=== PATIENT | male | born 1950 | race Caucasian/White ===

== ENCOUNTER → 2017-12-21 | Outpatient (CLI) | payer MEDICARE, BC | END | disposition home or self-care (01) | LOC: LABWHC1 08:57 | PROVIDERS: ATTEND Urology | DX: R97.20 Elevated prostate specific antigen [PSA] (principal) | CPT/HCPCS: 36415; 84153 ==

== ENCOUNTER → 2018-12-02 | Outpatient (CLI) | payer MEDICARE, BC ==
--- NOTE | 2018-12-02 11:28 | US ---
EXAMINATION TYPE: US carotid duplex BILAT DATE OF EXAM: 12/02/2018 COMPARISON: NONE CLINICAL HISTORY: R09.89 Bilateral carotid bruit. Bruit, dizziness EXAM MEASUREMENTS: RIGHT: Peak Systolic Velocity (PSV) cm/sec ----- Right CCA: 64.2 ----- Right ICA: 90.6 ----- Right ECA: 119.1 ICA/CCA ratio: 1.4 RIGHT: End Diastole cm/sec ----- Right CCA: 15.4 ----- Right ICA: 26.4 ----- Right ECA: 19.1 LEFT: Peak Systolic Velocity (PSV) cm/sec ----- Left CCA: 79.4 ----- Left ICA: 107.0 ----- Left ECA: 88.7 ICA/CCA ratio: 1.3 LEFT: End Diastole cm/sec ----- Left CCA: 20.7 ----- Left ICA: 34.9 ----- Left ECA: 16.6 VERTEBRALS (direction of flow): Right Vertebral: Antegrade Left Vertebral: Antegrade Rhythm: Normal Bilateral intimal thickening, no elevated velocities, no significant stenosis. IMPRESSION: 1. Bilateral intimal thickening with no significant hemodynamic stenosis as visualized. Criteria for Assigning % of Stenosis / Diameter reduction (Estimation based on the indirect measurements of the internal carotid artery velocities (ICA PSV). 1. Normal (no stenosis)=ICA PSV < 125 cm/s: ratio < 2.0: ICA EDV<40 cm/s. 2. Less than 50% stenosis=ICA PSV < 125 cm/s: ratio < 2.0: ICA EDV<40 cm/s. 3. 50 to 69% stenosis=ICA PSV of 125 to 230 cm/s: ration 2.0 ? 4.0: ICA EDV 40-100 cm/s. 4. Greater than 70% stenosis to near occlusion= ICA PSV > 230 cm/s: ratio > 4.0: ICA EDV > 100 cm/s. 5. Near occlusion= ICA PSV velocities may be low or undetectable: variable ratio and ICA EDV. 6. Total occlusion=unable to detect flow.
== END | disposition home or self-care (01) ==
LOC: RADUSWWP 10:11
PROVIDERS: ATTEND Family Medicine
DX: R00.2 Palpitations (principal); R09.89 Other specified symptoms and signs involving the circulatory and respiratory systems
CPT/HCPCS: 93225; 93226; 93880

== ENCOUNTER → 2019-02-08 | Outpatient (CLI) | payer MEDICARE, BC ==
[2019-02-08 08:56] LABS: HCT 45.1 % (39.0-53.0); HGB 14.5 gm/dL (13.0-17.5); MCH 29.6 pg (25.0-35.0); MCHC 32.1 g/dL (31.0-37.0); MCV 92.3 fL (80.0-100.0); Mean Platelet Volume 8.2; Platelet Count 179 k/uL (150-450); RBC 4.89 m/uL (4.30-5.90); RDW 14.3 % (11.5-15.5); WBC 5.5 k/uL (3.8-10.6)
[2019-02-08 08:57] LABS: INR 0.9 (<1.2); Partial Thromboplastin Time 23.2 sec (22.0-30.0); Prothrombin Time 9.9 sec (9.0-12.0)
[2019-02-08 16:58] LABS: Anion Gap 4.5 mmol/L (4.00-12.00); Calcium 9.1 mg/dL (8.7-10.3); Carbon Dioxide 29.5 mmol/L (21.6-31.8); LDL Cholesterol,Calculated 97.4 mg/dL (0.0-131.0); Potassium 4.3 mmol/L (3.5-5.5); VLDL Calculation 13.6 mg/dL (5.00-40.00)
== END | disposition home or self-care (01) ==
LOC: LABWHC1 08:15
PROVIDERS: ATTEND Internal Medicine Interventional Cardiology
DX: I48.91 Unspecified atrial fibrillation (principal)
CPT/HCPCS: 36415; 80048; 80061; 84450; 84460; 85027; 85610; 85730

== ENCOUNTER → 2022-03-19 | Outpatient (CLI) | payer MEDICARE, BC ==
[2022-03-19 15:16] LABS: African American GFR (CKD) 97.1 (60.0-200.0); BUN/Creat Ratio 22.19 Ratio (12.00-20.00); Blood Urea Nitrogen 20.1 mg/dL (9.0-27.0); Calcium 9.2 mg/dL (8.7-10.3); Carbon Dioxide 26.7 mmol/L (20.0-27.5); Non-African American GFR(CKD) 83.8 (60.0-200.0); Potassium 4.4 mmol/L (3.5-5.5)
[2022-03-19 16:14] LABS: Basophils # (A) 0.05 X 10*3/uL (0.00-0.10); Eosinophils # (A) 0.25 X 10*3/uL (0.04-0.35); Eosinophils % (A) 5.1 %; HCT 42.3 % (39.6-50.0); HGB 13.5 g/dL (13.0-17.0); Immature Grans, Automated 0.2 %; Lymphocytes # (A) 1.39 X 10*3/uL (0.90-5.00); Lymphocytes % (A) 28.1 %; MCH 30.1 pg (27.0-32.0); MCHC 31.9 g/dL (32.0-37.0); MCV 94.4 fL (80.0-97.0); Mean Platelet Volume 11.7 fL (9.5-12.2); Monocytes % (A) 12.1 %; NRBC Per 100 WBC 0 /100 WBCS (0.0-0.0); Neutrophils # (A) 2.64 X 10*3/uL (1.80-7.70); Neutrophils % (A) 53.5 %; Platelet Count 155 X 10*3/uL (140-440); RBC 4.48 X 10*6/uL (4.40-5.60); RDW 13.5 % (11.5-14.5); WBC 4.94 X 10*3/uL (4.50-10.00)
== END | disposition home or self-care (01) ==
LOC: LABPAT 10:35
PROVIDERS: ATTEND Urology
DX: Z01.812 Encounter for preprocedural laboratory examination (principal); N40.1 Benign prostatic hyperplasia with lower urinary tract symptoms
CPT/HCPCS: 80048; 85025

== ENCOUNTER 2022-03-27 06:10 | Day surgery (SDC) | payer BC, MEDICARE ==
[2022-03-25 08:43] VITALS: BMI 24.9
--- NOTE | 2022-03-26 18:49 | P.GSHP ---
History of Present Illness H&P Date: 03/26/22 Chief Complaint: Diminished urinary stream The patient is a 72-year-old white male with obstructive voiding symptoms. He reports a weak urinary stream, intermittency, postvoid dribbling, and nocturia. A trial of tamsulosin was unsuccessful. Cystoscopy revealed bilobar BPH, with a prostatic urethra measuring 2-3 cm in length. He has elected to undergo Urolift implants. - Constitutional Constitutional: Denies chills, Denies fever - Genitourinary (Male) Genitourinary: Reports as per HPI Past Medical History Past Medical History: Atrial Fibrillation, Asthma, Chest Pain / Angina, Prostate Disorder Additional Past Medical History / Comment(s): hx polymyalgia rheumatica, frequent urination History of Any Multi-Drug Resistant Organisms: None Reported Past Surgical History: Tonsillectomy Additional Past Surgical History / Comment(s): surgery to remove kidney stones, cystoscopy Past Anesthesia/Blood Transfusion Reactions: No Reported Reaction Smoking Status: Never smoker - Past Family History Mother Family Medical History: Cancer Father Family Medical History: Cancer Medications and Allergies Home Medications Medication Instructions Recorded Confirmed Type Apixaban [Eliquis] 5 mg PO BID 03/25/22 03/25/22 History Ascorbic Acid [Vitamin C] 1,000 mg PO DAILY 03/25/22 03/25/22 History Budesonide-Formot 160-4.5 Mcg 2 puff INHALATION BID 03/25/22 03/25/22 History [Symbicort 160-4.5 Mcg Inhaler] Calcipotriene/Betamethasone 1 applic TOPICAL DIRECTED PRN 03/25/22 03/25/22 History [Taclonex Ointment] Cholecalciferol [Vitamin D3 (25 50 mcg PO DAILY 03/25/22 03/25/22 History Mcg = 1000 Iu)] Cyanocobalamin (Vitamin B-12) 1,000 mcg PO DAILY 03/25/22 03/25/22 History [Vitamin B-12] Montelukast Sodium [Singulair] 10 mg PO HS 03/25/22 03/25/22 History Allergies Allergy/AdvReac Type Severity Reaction Status Date / Time No Known Allergies Allergy Verified 03/25/22 08:30 Surgical - Exam - General well developed, well nourished, no distress - Respiratory normal respiratory effort - Abdomen Abdomen: soft, non tender, no guarding, no rigid, no rebound - Genitourinary normal penis with no external lesions, testicles non-tender - Rectum Rectum: normal sphincter tone, no masses, other (Prostate mildly enlarged and smooth) - Psychiatric oriented to time, oriented to person, oriented to place, speech is normal, memory intact Assessment and Plan (1) Benign prostatic hyperplasia with lower urinary tract symptoms Status: Acute Code(s): N40.1 - BENIGN PROSTATIC HYPERPLASIA WITH LOWER URINARY TRACT SYMP SNOMED Code(s): 575687568 Plan: Cystoscopy with Urolift implants. The procedure has been reviewed in detail with the patient. He has been made aware of potential risks, which include anesthesia, bleeding, infection, postoperative urinary retention, persistent lower urinary tract symptoms, and postoperative irritative voiding symptoms.
[~2022-03-27 06:10] MED LIST: DEXAMETHASONE SOD PHOSPHATE 4 MG/ML 1 ML VIAL IV ONE; ONDANSETRON 4 MG/2 ML VIAL IVP ONE
[2022-03-27] MEDS ORDERED: LIDOCAINE 1% (10MG/ML) FOR IV START INTRADERMA ONE (07:02)
[2022-03-27] MEDS: LACTATED RINGERS 1,000 ML IV SCH ×2 (07:02→09:10)
[2022-03-27] MEDS ORDERED: fentaNYL (PF) 50 MCG/ML 2 ML AMP ONE (07:33)
[2022-03-27] MEDS ORDERED: LIDOCAINE 2% INJ 20 MG/ML (2 ML VIAL) ONE (07:33)
[2022-03-27] MEDS ORDERED: MIDAZOLAM 2 MG/2 ML VIAL ONE (07:33)
[2022-03-27] MEDS ORDERED: ePHEDrine 50 MG/ML 1 ML VIAL ONE (07:33)
[2022-03-27] MEDS ORDERED: PROPOFOL 10 MG/ML 20 ML VIAL IV ONE (07:33)
[2022-03-27 08:53] VITALS: TEMP 97.3
--- NOTE | 2022-03-27 09:04 | P.OP ---
Date of Procedure: 03/27/22 Preoperative Diagnosis: BPH with obstruction Postoperative Diagnosis: BPH with obstruction, bladder lesion Procedure(s) Performed: Cystoscopy with bladder biopsy, Urolift implant 7 Anesthesia: GETA Surgeon: Brandon Agustin Estimated Blood Loss (ml): 20 IV fluids (ml): 600 Pathology: none sent Condition: stable Disposition: PACU Indications for Procedure: The patient is a 72-year-old white male with obstructive voiding symptoms. He reports a weak urinary stream, intermittency, postvoid dribbling, and nocturia. A trial of tamsulosin was unsuccessful. Cystoscopy revealed bilobar BPH, with a prostatic urethra measuring 2-3 cm in length. He has elected to undergo Urolift implants. Operative Findings: Mucosal lesion, left posterior bladder wall. Bilobar BPH. Description of Procedure: The patient was taken in the operating room and placed in the dorsolithotomy position. The external genitalia was prepped and draped sterilely. The 30 lens was used to introduce the Stortz cystoscopic sheath through the urethra and into the bladder under direct vision. The anterior urethra appeared normal. The prostatic urethra showed evidence of complete obstruction with a bilobar configuration. Both ureteral orifice his were of normal anatomic location and configuration. No foreign bodies were seen. A small mucosal lesion was seen on the left posterior bladder wall. This was not particularly suspicious for malignancy, but nonetheless the cold cup biopsy forceps were used to obtain a biopsy. The biopsy site and surrounding mucosa were fulgurated using the Bugbee electrode. The bladder was mildly trabeculated. Urolift implants were placed at the 10:00 and 2:00 positions approximately 1 cm distal to the vesical neck. 2 additional Urolift implants were placed at the 9:00 and 3:00 positions at the level of the verumontanum. 3 additional implants were placed to achieve an open prostatic fossa, 2 on the right and one on the left. Minor oozing was noted from the left prostatic urethra. The bladder was emptied and the cystoscope removed. The patient tolerated the procedure well was taken to the recovery room in stable condition.
[2022-03-27] MEDS: HYDROmorphone 0.5 MG/0.5 ML SYRINGE IVP PRN ×4 (09:05→09:28)
[2022-03-27] MEDS ORDERED: MEPERIDINE 50 MG/ML SYRINGE IVP ONE (09:35)
[2022-03-27 09:58] VITALS: RESP 18
[2022-03-27 13:04] VITALS: BP 146/83; PULSE 55
== END 2022-03-27 15:24 | disposition home or self-care (01) ==
LOC: OR 06:10
PROVIDERS: ATTEND Urology
DX: N40.1 Benign prostatic hyperplasia with lower urinary tract symptoms (principal); N13.8 Other obstructive and reflux uropathy; R39.12 Poor urinary stream; R35.1 Nocturia; D41.4 Neoplasm of uncertain behavior of bladder; N30.20 Other chronic cystitis without hematuria; N30.00 Acute cystitis without hematuria; I48.91 Unspecified atrial fibrillation; J45.909 Unspecified asthma, uncomplicated; Z87.442 Personal history of urinary calculi; M35.3 Polymyalgia rheumatica; Z80.9 Family history of malignant neoplasm, unspecified; Z79.01 Long term (current) use of anticoagulants; Z79.899 Other long term (current) drug therapy; Z79.51 Long term (current) use of inhaled steroids
CPT/HCPCS: 88305; 52204; 52441; 52442 ×5; L8699; J2250; J1100; J2175; J0690; J2405; J3010; J2704; J1170; J2001

== ENCOUNTER 2022-03-28 07:19 | Emergency (ER) | payer MEDICARE ==
[2022-03-28 07:27] VITALS: BP 155/76; PULSE 79; RESP 20; TEMP 98.1
--- NOTE | 2022-03-28 07:51 | ED ---
General Adult HPI - General Chief complaint: Abdominal Pain Stated complaint: PO surgery yesterday, ABD pain Time Seen by Provider: 03/28/22 07:25 Source: patient, RN notes reviewed, old records reviewed Mode of arrival: ambulatory Limitations: no limitations - History of Present Illness Initial comments: This is a 72-year-old male who presents emergency Department after having had a urolift yesterday by Dr. Rinaldi. Patient states all night long he was having difficulty urinating and he was told to remove the catheter today but he was unable to remove it patient states he is now leaking around the catheter and every time he goes to urinate there is pain. Patient denies any fever chills. Patient states her suprapubic tenderness now that wasn't there yesterday. Patient denies any upper abdominal pain. Patient denies vomiting or diarrhea. Patient denies any other symptoms at this time. - Related Data Home Medications Medication Instructions Recorded Confirmed Apixaban [Eliquis] 5 mg PO BID 03/25/22 03/27/22 Ascorbic Acid [Vitamin C] 1,000 mg PO DAILY 03/25/22 03/27/22 Budesonide-Formot 160-4.5 Mcg 2 puff INHALATION BID 03/25/22 03/27/22 [Symbicort 160-4.5 Mcg Inhaler] Calcipotriene/Betamethasone 1 applic TOPICAL DIRECTED PRN 03/25/22 03/27/22 [Taclonex Ointment] Cholecalciferol [Vitamin D3 (25 50 mcg PO DAILY 03/25/22 03/27/22 Mcg = 1000 Iu)] Cyanocobalamin (Vitamin B-12) 1,000 mcg PO DAILY 03/25/22 03/27/22 [Vitamin B-12] Montelukast Sodium [Singulair] 10 mg PO HS 03/25/22 03/27/22 Previous Rx's Medication Instructions Recorded Ketorolac [Toradol] 10 mg PO Q6HR PRN #15 tab 03/27/22 Phenazopyridine [Pyridium] 200 mg PO TID #21 tablet 03/27/22 Allergies Allergy/AdvReac Type Severity Reaction Status Date / Time No Known Allergies Allergy Verified 03/28/22 07:27 Review of Systems ROS Statement: Those systems with pertinent positive or pertinent negative responses have been documented in the HPI. ROS Other: All systems not noted in ROS Statement are negative. Past Medical History Past Medical History: Asthma History of Any Multi-Drug Resistant Organisms: None Reported Additional Past Surgical History / Comment(s): Urolift Past Psychological History: No Psychological Hx Reported Smoking Status: Never smoker Past Alcohol Use History: Occasional Past Drug Use History: None Reported General Exam - General Exam Comments Initial Comments: GENERAL: Patient is well-developed and well-nourished. Patient is nontoxic and well- hydrated and is in mild distress. ENT: Neck is soft and supple. No significant lymphadenopathy is noted. Oropharynx is clear. Moist mucous membranes. EYES: The sclera were anicteric and conjunctiva were pink and moist. Extraocular movements were intact and pupils were equal round and reactive to light. Eyelids were unremarkable. PULMONARY: Unlabored respirations. Good breath sounds bilaterally. No audible rales rhonchi or wheezing was noted. CARDIOVASCULAR: There is a regular rate and rhythm without any murmurs gallops or rubs. ABDOMEN: Patient had mild suprapubic tenderness GENITALIA: On exam of the penis and scrotum the area shows no lesion swelling surrounding this. SKIN: Skin is clear with no lesions or rashes and otherwise unremarkable. NEUROLOGIC: Patient is alert and oriented x3. Cranial nerves II through XII are grossly intact. Motor and sensory are also intact. Normal speech, volume and content. Symmetrical smile. MUSCULOSKELETAL: Normal extremities with adequate strength and full range of motion. No lower extremity swelling or edema. No calf tenderness. LYMPHATICS: No significant lymphadenopathy is noted PSYCHIATRIC: Normal psychiatric evaluation. Limitations: no limitations Course Vital Signs 03/28/22 07:25 Temperature 98.1 F Pulse Rate 79 Respiratory 20 Rate Blood Pressure 155/76 O2 Sat by Pulse 98 Oximetry Medical Decision Making - Medical Decision Making Catheter was clamped for the patient wasn't able to remove the fluid from the balloon however we were able to remove it and the catheter and the patient was able to urinate after that. - Lab Data Lab Results 03/28/22 Range/Units 08:14 Urine Color Dark Red Urine Appearance Bloody (Clear) Urine RBC >182 H (0-5) /hpf Urine WBC >182 H (0-5) /hpf Urine Mucus Few H (None) /hpf Disposition Clinical Impression: Vilchis catheter problem Disposition: HOME SELF-CARE Condition: Good Is patient prescribed a controlled substance at d/c from ED?: No Referrals: Brandon Agustin MD [STAFF PHYSICIAN] - 1-2 days Time of Disposition: 09:38
[2022-03-28 09:14] LABS: Mucus,Urine Few /hpf; RBC,Urine >182 /hpf (0-5); WBC,Urine >182 /hpf (0-5)
[2022-03-28 09:17] LABS: Appearance,Urine Bloody (Clear); Color,Urine Dark Red
== END 2022-03-28 09:46 | disposition home or self-care (01) ==
LOC: EC 07:19
DX: T83.038A Leakage of other urinary catheter, initial encounter (principal); J45.909 Unspecified asthma, uncomplicated
CPT/HCPCS: 51798; 81001; 87086; 99284

== ENCOUNTER → 2025-02-27 | Outpatient (CLI) | payer MEDICARE ==
--- NOTE | 2025-02-27 14:42 | FL ---
EXAMINATION TYPE: FL barium enema DATE OF EXAM: 02/27/2025 COMPARISON: CLINICAL INDICATION: Male, 74 years old with history of K57.90 DVRTCLOS OF INTEST, PART UNSP, W/O PER F OR; [facility], incomplete colonoscopy. Sigmoid stricture. History of abnormal bowel movements with mucous . TECHNIQUE: A double contrast barium enema study is performed. A total of 3.18 minutes of fluoroscop ic time was utilized during procedure and 25 images obtained. Total dose area product (DAP) in uGy*m ?, mGy*cm? (or similar): n/p. FINDINGS: Fly Frame Tender view of the abdomen shows overall non-obstructive bowel gas pattern. Treatment fisher es to the prostate gland above the pubic symphysis are noted. There is successful filling to the level of the hepatic flexure. At this point due to redundancy of c olon and barium leak, complete evaluation to the cecum was not performed. Exam is suboptimal due to r edundancy of colon. Diffuse colonic diverticulosis is present. No obstructing or constricting lesion is seen. Mild narrowing in the sigmoid colon is confirmed. Appendix and terminal ileum are not refluxed. IMPRESSION: Suboptimal study. There is however successful filling to the level of the hepatic flexur e without obstructing or constricting neoplasm identified. [facility], , 02/27/2025 2:40 PM
== END | disposition home or self-care (01) ==
LOC: RADFLMAIN 10:29
PROVIDERS: ATTEND Student in an Organized Health Care Education/Training Program
DX: Z01.818 Encounter for other preprocedural examination (principal); K57.30 Diverticulosis of large intestine without perforation or abscess without bleeding
CPT/HCPCS: 74270